=== PATIENT | male | born 1945 | race Caucasian/White ===

== ENCOUNTER 2016-12-11 05:55 | Emergency (ER) | payer MEDICARE, BC, MEDICAID ==
[2016-12-11] MEDS ORDERED: Sodium Chloride 0.9% 500 ML IV ONE (06:18)
[2016-12-11] MEDS ORDERED: Rocuronium 50 MG/5 ML Vial IV ONE (07:14)
[2016-12-11] MEDS ORDERED: Etomidate 2 MG/ML 20 ML SDV IVPUSH ONE (07:14)
[2016-12-11] MEDS ORDERED: Propofol 1,000 MG/100 ML SDV IV ONE (07:14)
[2016-12-11 07:33] VITALS: BP 158/79
--- NOTE | 2016-12-12 14:46 | ER ---
DATE SEEN: 12/11/2016 CHIEF COMPLAINT: Loss of consciousness and confusion. HISTORY OF PRESENT ILLNESS: Daniel is a 71-year-old, who is known to have a smoking and alcohol history in the past. [place] had one drink this evening, came home, felt sick. He was diaphoretic, went to the bathroom and then last seen by his approximately 0500 hours. At that time was noted to be confused and not able to arouse him. [facility] called and then was exchanged to the [place] ambulance enroute to [facility]. The patient is agitated, short of breath. Has a nasal trumpet in place. PRIMARY SURVEY: 1. Airway protected gagging, exchanging air, intermittently waving his arms and then stopped breathing. 2. Became apneic, breathing air exchange clear. Bilaterally, no retraction. No accessory muscle use. Heart rate 78, transient blood pressures 70s/60s, then blood pressure came up to 125/80s. The patient has a nasal trumpet in place - this was taken out, as I wondered if his agitation was secondary the trumpet irritation. HE still had difficulty breathing, this was followed by apnea and respiratory arrest. Bag- Valve mask utilized successfully with good airway protection without reinserting the nasal trumpet. 3. [place] Coma scale; he did not open his eyes spontaneously (3). Localization of pain (5). Confused (4). For a total of 12. 4. Arrangements were made for intubation. 5. He has an unusual ecchymosis in left lateral flank. According to his , this is new. This extends anterior onto the abdomen. 6. Pale. Conjunctiva palpebrae. SECONDARY EXAMINATION: VITAL SIGNS: At 0552 hours, blood pressure 86/40, unresponsive, bagging continued. At 0555, heart rate 73, blood pressure 123/79. Preparations made for intubation. He is protecting his airway. Has some grunting. No retractions. LUNGS: Bilateral air exchange spontaneous return of respiratory effort was supported with intermittent bag valve mask support. HEART: S1, S2. Non tachycardic. ABDOMEN: Soft. No guarding. No discomfort. Slightly violaceous ecchymosis noted on the left anterior lateral flank. NEURO: Confused. Does occasionally follow commands, intermittently variable response to commands and then confused, then becomes more apneic. Bag-valve mask continued. EXTREMITIES: When asked to move his left lower extremity, he has flaccid paralysis of left lower extremity and upper extremity on command. Right upper and lower extremities have good muscle strength. ASSESSMENT: 1. Rule out right cerebrovascular accident. 2. Rule out anterior myocardial infarction. He has downward coving of the V2 and V3 with significant ST depression in leads 1, 2, V4, V5, and V6. I spoke to Dr. Petersen, Cardiology about the patient's status and she did not think an acute myocardial infarction. CAT scan performed. CT of head: No suggestion of bleed. 3. Chronic obstructive lung disease. 4. Old alcohol history. PLAN: 1. Patient intubated. ET tube 23 cm at 1615, rocuronium, etomidate, 500 mL normal saline, 18-gauge antecubital. 2. Propofol drip, 40 to 50 mcg/kg/min. The patient's status discussed with Dr. Petersen, Dr. Prescott and he will be going to ED at [facility]. /[id number] LETICIA/ERIC PORTER
== END 2016-12-11 07:20 ==
LOC: FB.ED 05:55
DX: J44.9 Chronic obstructive pulmonary disease, unspecified (principal); Z87.891 Personal history of nicotine dependence; F10.21 Alcohol dependence, in remission; R55 Syncope and collapse; R41.0 Disorientation, unspecified; I73.89 Other specified peripheral vascular diseases
CPT/HCPCS: 31500; 36415; 36600; 70450; 80053; 82803; 84484; 85025; 85610; 85730; 93005; 96361; 96374; 96375; 99284; 99291; J7040; J3490